=== PATIENT | female | born 1980 | race Hispanic/Latino ===

== ENCOUNTER 2017-07-24 11:28 | Emergency (ER) | payer BC ==
[~2017-07-24] VITALS: Ht 162.6 cm; Wt 83.9 kg
[2017-07-24] MEDS ORDERED: HYDROCODONE/APAP 7.5MG-325MG 1 EA TAB PO PRN (11:45)
[2017-07-24 13:05] LABS: BASOPHILS # (AUTO) 0.1 (0.0-0.1); BASOPHILS % 0.5 % (0.0-1.0); EOSINOPHILS # (AUTO) 0.1 (0.0-0.4); EOSINOPHILS % 0.8 % (0.0-6.0); HEMATOCRIT 36.1 % (34.2-44.1); HEMOGLOBIN 11.4 g/dL (12.0-16.0); LYMPHOCYTES # (AUTO) 1.6 (1.0-3.2); LYMPHOCYTES % 11.8 % (18.0-39.1); MEAN CORPUSCULAR HEMOGLOBIN 24.1 pg (28-32); MEAN CORPUSCULAR HGB CONC 31.6 g/dL (31-35); MEAN CORPUSCULAR VOLUME 76.2 fL (81-99); MONOCYTES # (AUTO) 0.9 (0.2-0.8); NEUTROPHILS # (AUTO) 10.5 (2.1-6.9); NEUTROPHILS % 79.7 % (38.7-80.0); PLATELET COUNT 328 x10e3/uL (140-360); RED BLOOD COUNT 4.74 x10e6/uL (3.6-5.1); RED CELL DISTRIBUTION WIDTH 23.4 % (11.7-14.4)
[2017-07-24 13:07] LABS: CLARITY,URINE CLOUDY (CLEAR); COLOR,URINE YELLOW (YELLOW); LEUKOCYTE ESTERASE ,URINE NEGATIVE (NEGATIVE); NITRITE,URINE NEGATIVE (NEGATIVE); PROTEIN,URINE DIPSTICK TRACE (NEGATIVE)
[2017-07-24 13:08] LABS: BILIRUBIN,URINE NEGATIVE (NEGATIVE); KETONES,URINE 1+ (NEGATIVE); URINE UROBILINOGEN 0.2 mg/dL (0.2 - 1)
[2017-07-24 13:23] LABS: BACTERIA,URINE FEW /HPF; EPITHELIAL CELLS,URINE FEW /LPF; RBC,URINE >50 /HPF (0-5); WBC,URINE (MAN) 0-5 /HPF (0-5)
[2017-07-24 13:27] LABS: ALANINE AMINOTRANSFERASE 16 IU/L (0-55); ALBUMIN 3.3 g/dL (3.5-5.0); ALBUMIN/GLOBULIN RATIO 0.7 (0.8-2.0); ALKALINE PHOSPHATASE 60 IU/L (40-150); ANION GAP 12.5 mmol/L (8-16); BLOOD UREA NITROGEN 9 mg/dL (7-26); BUN/CREATININE RATIO 11 (6-25); CALCIUM 9.7 mg/dL (8.4-10.2); CARBON DIOXIDE 25 mmol/L (22-29); CHLORIDE 104 mmol/L (98-107); CREATININE, SERUM 0.84 mg/dL (0.57-1.11); EST GLOMERULAR FILTRATION RATE > 60 ML/MIN (60-); GLUCOSE 115 mg/dL (74-118); POTASSIUM 3.5 mmol/L (3.5-5.1); SODIUM 138 mmol/L (136-145)
[2017-07-24 13:33] LABS: HCG,QUANTITATIVE < 1.20 mIU/mL (0-10)
--- NOTE | 2017-07-24 13:52 | Diagnostic Imaging Report ---
EXAM: Transabdominal and Transvaginal Pelvic Ultrasound INDICATION: Vaginal bleeding. COMPARISON: None TECHNIQUE: Grayscale transverse and sagittal transabdominal and transvaginal images were obtained of the pelvis. Transvaginal imaging was medically necessary to better evaluate the endometrium and the adnexa. CLINICAL HISTORY: 36 year old A0; last menstrual period: 05/27/2017. FINDINGS: Uterus Orientation: Normal Size: 15.3 x 10.6 x 11.7 cm, Normal Mass: 10.3 x 9.8 x 10.9 cm heterogenous region in the fundus. Cervix: Nabothian cyst is present in the cervix. Endometrium: Endometrial stripe is not visualized. Right ovary: Size: 3.9 x 2.3 x 2.2 cm Mass/Cyst: None Left ovary: Not visualized. Adnexa: Normal Cul-de-sac: No free fluid IMPRESSION: Focal heterogenous mass in the uterus likely represents a fibroid. No acute sonographic abnormality. Ovary volume: L x W x H x 0.523 Normal = 5 - 15 mL Follicle - simple < 2.5 cm Complex cyst - any size <30 yo no flow - hemorrhagic >30 Follow Postmeno - bleeding >8mm ABNL Postmeno + bleeding <2mm atrophy and > 5mm random bx Neg bx then sonohys Fibroid > 10cm or hetero give sarc disclaimer Signed by: Dr. Fredi Rascon M.D. on 07/24/2017 1:48 PM
[2017-07-24 14:15] VITALS: BP 111/85
[2017-07-24 14:39] LABS: MONOCYTES % (MANUAL) 6 % (3.4-9.0); NEUTROPHILS % (MANUAL) 80 % (40-74)
[2017-07-24 14:40] LABS: LYMPHOCYTES % (MANUAL) 14 % (19-48); PLATELET ESTIMATE ADEQUATE; PLATELET MORPHOLOGY COMMENT NORMAL; RBC MORPHOLOGY COMMENT NORMAL
== END 2017-07-24 14:20 | disposition home or self-care (01) ==
LOC: ER 11:28
DX: N93.8 Other specified abnormal uterine and vaginal bleeding (principal); D25.9 Leiomyoma of uterus, unspecified
CPT/HCPCS: 36415; 76856; 80053; 81001; 84702; 85025; 99284